=== PATIENT | male | born 1950 | race Caucasian/White ===

== ENCOUNTER 2022-03-18 08:18 | Day surgery (SDC) | payer MEDICARE ==
[2022-03-18] VITALS (20 sets, daily range): BP systolic 102–175; BP diastolic 48–113
[~2022-03-18] VITALS: Ht 177.8 cm; Wt 87.7 kg
[~2022-03-18 08:18] MED LIST: ASPI-1071 PO; ATOR20TA66 PO; DOCU-28 PO; LISI5TAB22 PO; MAGN296S70 PO; METO-395 PO; SUCR1ORA2 PO; TICA90TA PO
[2022-03-18] MEDS ORDERED: LORazepam 1 MG tablet PO ONE (10:00)
[2022-03-18 10:43] LABS: BASOPHILS % (AUTO) 0.5 % (0-1); EOSINOPHILS # (AUTO) 0.1 X10'3 (0-0.9); EOSINOPHILS % (AUTO) 1.5 % (0-6); HEMATOCRIT 49.9 % (42.0-52.0); HEMOGLOBIN 17.4 g/dl (14.0-17.9); LYMPHOCYTES # (AUTO) 1.8 X10'3 (1.1-4.8); LYMPHOCYTES % (AUTO) 21.5 % (21-51); MEAN CORPUSCULAR HEMOGLOBIN 31.9 PG (27.0-31.0); MEAN CORPUSCULAR HGB CONC 34.8 g/dL (33.0-36.5); MEAN CORPUSCULAR VOLUME 91.5 FL (78-98); MEAN PLATELET VOLUME 7.2 FL (7.4-10.4); MONOCYTES # (AUTO) 0.7 X10'3 (0-0.9); MONOCYTES % (AUTO) 8.1 % (2-12); NEUTROPHILS # (AUTO) 5.8 X10'3 (1.8-7.7); NEUTROPHILS % (AUTO) 68.4 % (42-75); PLATELET COUNT 218 X10'3 (140-440); RED BLOOD COUNT 5.46 X10'6 (4.70-6.10); RED CELL DISTRIBUTION WIDTH 13.6 % (11.5-14.5); WHITE BLOOD COUNT 8.5 X10'3 (4.5-11.0)
[2022-03-18] MEDS ORDERED: gelatin sponge, absorbable (Gelfoam 12-7MM) sponge TP ONE (10:56)
[2022-03-18] MEDS ORDERED: fentaNYL/PF 50MCG/1 ML 2ML syringe ONE (10:56)
[2022-03-18] MEDS ORDERED: midazolam 1 mg/ML 2ml injection ONE (10:56)
[2022-03-18] MEDS ORDERED: ASCO-336 PO (11:12)
[2022-03-18] MEDS ORDERED: MULT-1172 PO (11:12)
[2022-03-18] MEDS ORDERED: OMEP20CA16 PO (11:12)
[2022-03-18] MEDS ORDERED: TICA90TA PO (11:19)
[2022-03-18] MEDS ORDERED: ATOR20TA66 PO (11:19)
[2022-03-18] MEDS ORDERED: ASPI-611 PO (11:19)
[2022-03-18] MEDS ORDERED: LISI5TAB22 PO (11:19)
[2022-03-18] MEDS ORDERED: LIDOcaine 1%/PF 5ML 10 MG/ML VIAL ONE (11:19)
[2022-03-18] MEDS ORDERED: METO-395 PO (11:19)
[2022-03-18] MEDS ORDERED: LIDOcaine 1% (10mg/ml) 2ml vial ONE (11:30)
[2022-03-18] MEDS ORDERED: HYDROcodone/acetaminophen 5mg/325mg tablet PO PRN ×2 (12:20)
== END 2022-03-18 14:50 | disposition home or self-care (01) ==
LOC: SSTAY O 08:18
PROVIDERS: ATTEND Radiology Vascular & Interventional Radiology
DX: R91.8 Other nonspecific abnormal finding of lung field (principal); J98.4 Other disorders of lung; Z79.899 Other long term (current) drug therapy; Z72.89 Other problems related to lifestyle; Z87.891 Personal history of nicotine dependence
CPT/HCPCS: 32408; 36415; 71045; 85025; 99152; 99153; J2250; J3010; J3490; J7030; 77012; 88173; 88305; A4615

== ENCOUNTER 2022-09-03 06:36 | Day surgery (SDC) | payer MEDICARE, BC ==
[~2022-09-03] VITALS: Ht 170.2 cm; Wt 88.3 kg
[~2022-09-03 06:36] MED LIST changes: +ASCO-336 PO; -ASPI-1071 PO; +ASPI-611 PO; -DOCU-28 PO; +GUAI400T92 PO; +IPRA3AMP9 NEB; -MAGN296S70 PO; +MULT-1172 PO; +PRED10TA PO; -SUCR1ORA2 PO
[2022-09-03] MEDS ORDERED: normal saline 1000ml 1,000 ML IV PRN (07:00)
[2022-09-03] MEDS ORDERED: ALKALETE (07:16)
[2022-09-03] MEDS ORDERED: TRELEGY (07:16)
[2022-09-03] MEDS ORDERED: BENZ-38 PO (07:16)
[2022-09-03] MEDS ORDERED: BUDE10.7 (07:16)
[2022-09-03 07:30] VITALS: BP 125/76
[2022-09-03] MEDS ORDERED: LIDOcaine 1% 30ml preserv. free vial ONE (07:52)
[2022-09-03] MEDS ORDERED: midazolam 1 mg/ML 2ml injection ONE (07:52)
[2022-09-03] MEDS ORDERED: fentaNYL/PF 50MCG/1 ML 2ML syringe ONE ×2 (07:52→08:59)
[2022-09-03] MEDS ORDERED: heparin sodium, porcine/PF 100unit/ml 5ML syringe ONE (07:52)
[2022-09-03 07:58] LABS: BASOPHILS # (AUTO) 0.1 X10'3 (0-0.2); BASOPHILS % (AUTO) 0.8 % (0-1); EOSINOPHILS # (AUTO) 0.3 X10'3 (0-0.9); EOSINOPHILS % (AUTO) 2.9 % (0-6); HEMATOCRIT 36.7 % (42.0-52.0); HEMOGLOBIN 12.3 g/dl (14.0-17.9); LYMPHOCYTES # (AUTO) 1.7 X10'3 (1.1-4.8); LYMPHOCYTES % (AUTO) 15.9 % (21-51); MEAN CORPUSCULAR HEMOGLOBIN 29.9 PG (27.0-31.0); MEAN CORPUSCULAR HGB CONC 33.6 g/dL (33.0-36.5); MEAN CORPUSCULAR VOLUME 88.9 FL (78-98); MEAN PLATELET VOLUME 6.7 FL (7.4-10.4); MONOCYTES # (AUTO) 1.1 X10'3 (0-0.9); MONOCYTES % (AUTO) 10.1 % (2-12); NEUTROPHILS # (AUTO) 7.5 X10'3 (1.8-7.7); NEUTROPHILS % (AUTO) 70.3 % (42-75); PLATELET COUNT 306 X10'3 (140-440); RED BLOOD COUNT 4.13 X10'6 (4.70-6.10); RED CELL DISTRIBUTION WIDTH 15.4 % (11.5-14.5); WHITE BLOOD COUNT 10.6 X10'3 (4.5-11.0)
[2022-09-03] MEDS ORDERED: pneumococcal 23-VAL P-sac vacc 25 mcg/0.5ml vial IMVAC ONE (09:30)
[2022-09-03 09:37] VITALS: BP 109/61
[2022-09-03 09:45] VITALS: BP 99/60
[2022-09-03 10:00] VITALS: BP 100/61
[2022-09-03 10:15] VITALS: BP 100/66
[2022-09-03 10:27] VITALS: BP 121/77
== END 2022-09-03 10:41 | disposition home or self-care (01) ==
LOC: SSTAY O 06:36
PROVIDERS: ATTEND Radiology Vascular & Interventional Radiology
DX: C34.31 Malignant neoplasm of lower lobe, right bronchus or lung (principal); Z23 Encounter for immunization; Z79.01 Long term (current) use of anticoagulants; Z88.8 Allergy status to other drugs, medicaments and biological substances; Z91.041 Radiographic dye allergy status; Z82.3 Family history of stroke; Z79.82 Long term (current) use of aspirin; Z72.89 Other problems related to lifestyle; Z87.891 Personal history of nicotine dependence; Z98.890 Other specified postprocedural states; Z79.899 Other long term (current) drug therapy
CPT/HCPCS: 36415; 36561; 76937; 77001; 85025; 85610; 90732; 99152; 99153; C1788; C1894; G0009; J1642; J2250; J3010; J3490; J7030; A4620